=== PATIENT | male | born 1995 | race Two or more races ===

== ENCOUNTER 2017-04-11 08:39 | Emergency (ER) | payer OTHER ==
[~2017-04-11] VITALS: Ht 162.6 cm; Wt 49.9 kg
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
--- NOTE | 2017-04-11 09:53 | NUR ---
Patient discharged IN CUSTODY in stable condition. Written and verbal after care instructions given. Patient and [employer] verbalized understanding of instruction.
[2017-04-11 09:55] VITALS: BP 124/88
== END 2017-04-11 09:55 ==
LOC: ER 08:41
DX: S06.9X9A Unspecified intracranial injury with loss of consciousness of unspecified duration, initial encounter (principal); F17.200 Nicotine dependence, unspecified, uncomplicated; W10.1XXA Fall (on)(from) sidewalk curb, initial encounter; Y93.89 Activity, other specified; Y92.89 Other specified places as the place of occurrence of the external cause; Y99.8 Other external cause status
CPT/HCPCS: 70450-TC; A4606; Z7610